=== PATIENT | male | born 2000 | race Hispanic/Latino ===

== ENCOUNTER 2021-05-04 17:35 | Inpatient (IN) | payer OTHER ==
[~2021-05-04] VITALS: Ht 177.8 cm; Wt 91.4 kg
[2021-05-04] MEDS ORDERED: FLUO10CA16 PO (17:57)
[2021-05-04 18:54] LABS: HEMOGLOBIN 15.4 g/dl (13.5-17.5); MEAN CORPUSCULAR HEMOGLOBIN 29.3 pg (27.0-33.0); MEAN CORPUSCULAR HGB CONC 34.2 g/dl (32.0-36.5); MEAN CORPUSCULAR VOLUME 85.6 fl (80.0-96.0); PLATELET COUNT, AUTOMATED 279 10^3/uL (150-450); RED BLOOD COUNT 5.26 10^6/uL (4.30-6.10); WHITE BLOOD COUNT 9.5 10^3/uL (4.0-10.0)
[2021-05-04 19:28] LABS: AMPHETAMINES LEVEL URINE NEGATIVE (NEGATIVE); BARBITURATES URINE NEGATIVE (NEGATIVE); BENZODIAZEPINES URINE NEGATIVE (NEGATIVE); CANNABINOIDS URINE NEGATIVE (NEGATIVE); COCAINE METABOLITE URINE NEGATIVE (NEGATIVE); METHADONE URINE NEGATIVE (NEGATIVE); OPIATES URINE NEGATIVE (NEGATIVE); PHENCYCLIDINE URINE NEGATIVE (NEGATIVE)
[2021-05-04 19:32] LABS: ACETAMINOPHEN LEVEL < 2.0 UG/ML (10.0-30.0); ALBUMIN 4.6 GM/DL (3.2-5.2); ALT/SGPT 39 U/L (12-78); BILIRUBIN,DIRECT 0.1 MG/DL (0.0-0.2); BILIRUBIN,TOTAL 0.4 MG/DL (0.2-1.0); BLOOD UREA NITROGEN 9 MG/DL (7-18); CALCIUM LEVEL 9.9 MG/DL (8.5-10.1); CARBON DIOXIDE LEVEL 25 MEQ/L (21-32); CHLORIDE LEVEL 107 MEQ/L (98-107); CREATININE FOR GFR 0.84 MG/DL (0.70-1.30); ETHYL ALCOHOL (ETHANOL) < 0.003 % (0.000-0.010); GLUCOSE, FASTING 82 MG/DL (70-100); POTASSIUM SERUM 3.8 MEQ/L (3.5-5.1); SALICYLATE LEVEL < 1.7 MG/DL (5.0-30.0); SODIUM LEVEL 140 MEQ/L (136-145); TOTAL PROTEIN 8.4 GM/DL (6.4-8.2)
[2021-05-04] MEDS ORDERED: traZODone 50 MG TAB PO PRN (21:05)
[2021-05-04] MEDS ORDERED: MOM 30ML SUSPENSION UDC PO PRN (21:05)
[2021-05-04] MEDS ORDERED: ACETAMINOPHEN TAB 650MG DOSE (2X325MG) PO PRN (21:05)
[2021-05-04] MEDS ORDERED: MAALOX 30 ML SUSP *UDC PO PRN (21:05)
--- OUTSIDE RECORDS SUMMARY | 2021-05-04 21:08 | CCD ---
Author Author [facility] Organization [facility] Address Unknown Phone Unavailable Support Name Relationship Address Phone [facility] Next Of Kin [address] [place] [address] Unavailable FELICITAS BAKER Next Of Kin [id number] [place] [address] Re-disclosure Warning The records that you are about to access may contain information from federally-assisted alcohol or drug abuse programs. If such information is present, then the following federally mandated warning applies: This information has been disclosed to you from records protected by federal confidentiality rules (42 CFR part 2). The federal rules prohibit you from making any further disclosure of this information unless further disclosure is expressly permitted by the written consent of the person to whom it pertains or as otherwise permitted by 42 CFR part 2. A general authorization for the release of medical or other information is NOT sufficient for this purpose. The Federal rules restrict any use of the information to criminally investigate or prosecute any alcohol or drug abuse patient.The records that you are about to access may contain highly sensitive health information, the redisclosure of which is protected by Article 27-F of the [facility] Public Health law. If you continue you may have access to information: Regarding HIV / AIDS; Provided by facilities licensed or operated by the [facility] Office of Mental Health; or Provided by the [facility] Office for People With Developmental Disabilities. If such information is present, then the following [facility] mandated warning applies: This information has been disclosed to you from confidential records which are protected by state law. State law prohibits you from making any further disclosure of this information without the specific written consent of the person to whom it pertains, or as otherwise permitted by law. Any unauthorized further disclosure in violation of state law may result in a fine or [place] [facility] sentence or both. A general authorization for the release of medical or other information is NOT sufficient authorization for further disc losure. Medications No Information Insurance Providers Payer name Policy type / Coverage type Policy ID Covered republican ID Covered republican's relationship to nesbitt Policy Nesbitt Plan Information [facility] [employer] [id number] Problems, Conditions, and Diagnoses No Information Surgeries/Procedures No Information Results No Information Social History No Information
[2021-05-04 21:53] LABS: RSV AMPLIFICATION NEGATIVE (NEGATIVE)
[2021-05-04] MEDS ORDERED: HOME MED LIST COMPLETE! XX SCH (22:20)
[2021-05-05 00:16] VITALS: BP 158/98
[2021-05-05] MEDS ORDERED: ALPRAZolam 0.5 MG TAB PO PRN (00:50)
[2021-05-05] MEDS ORDERED: ALPRAZolam 0.5 MG TAB PO ONE (00:50)
[2021-05-05] MEDS ORDERED: SERTRALINE HCL 50 MG TAB PO SCH (09:00)
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
[2021-05-05] MEDS: DULoxetine 20 MG CAP (CYMBALTA) PO SCH ×2 (11:50→21:01)
--- NOTE | 2021-05-05 15:09 | HPEPDOC ---
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 He expressed to his that he is feeling depressed and having suicidal thoughts for several months to his . She brought him to the ER. He was admitted to the [facility]. Patient reports numerous stressors including too much work, poor sleep and appetite low energy and concentration. He lost his mother in the last year due to Covid. Patient denies chest pain pa lpitations shortness of breath nausea vomiting diarrhea subjective fevers and chills. Hospitalist service was consulted for medical intake. Patient is normotensive afebrile. He does not have any acute abnormalities on his CBC. ALP is mildly elevated at 128 with upper limit of normal at 117. He does not endorse any abdominal pain or jaundice. PAST MEDICAL HISTORY: Depression, nicotine dependence PAST SURGICAL HISTORY: Ports no prior surgical history SOCIAL HISTORY: Patient denies smoking, but there are reports of tobacco use Patient denies etoh use Patient denies illicit drug use ALLERGIES: Please see below. REVIEW OF SYSTEMS: 10 point ROS was conducted, relevant findings were noted in the HPI. HOME MEDICATIONS: Please see below. PHYSICAL EXAMINATION: VITAL SIGNS: please see below General: NAD, comfortable HEENT: PERRLA, EOMI, sclerae clear Neck: supple, normal ROM, no JVD Respiratory: lungs CTAB, no wheeze, no rales, no crackles CVS: RRR, normal S1, S2, no murmurs Abdo: soft, no masses, no hepatosplenomegaly, BS+, no rebound tenderness Extremities: no edema, pulses 2+ MSK: no joint deformities, normal ROM Neuro: no focal neuro deficits, moving all 4 extremities, CN2-12 intact. Strength 5/5 in all 4 extremities. No nystagmus. Psych: calm, cooperative, AAO x 3 LABORATORY DATA: See below. MICROBIOLOGY: Please see below. 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 He expressed to his that he is feeling depressed and having suicidal thoughts for several months. Hospital service was consulted for medical intake. PLAN: Suicidal ideation: Per psychiatry Elevated BMI 20.9: Lifestyle modification changes once mood stable. Thank you for involving me in the care of this patient. Please reconsult as necessary. Vital Signs Vital Signs Date Time Temp Pulse Resp B/P (MAP) Pulse Ox O2 Delivery O2 Flow Rate FiO2 05/05/21 06:45 Room Air 05/05/21 00:16 97.0 77 18 158/98 (118) 97 Laboratory Data Labs 24H Laboratory Tests 2 05/04/21 17:59: Nucleated Red Blood Cells % (auto) 0.0, Anion Gap 8, Calcium Level 9.9, Total Bilirubin 0.4, Direct Bilirubin 0.1, Aspartate Amino Transf (AST/SGOT) 23, Ala nine Aminotransferase (ALT/SGPT) 39, Alkaline Phosphatase 128H, Total Protein 8.4H, Albumin 4.6, Albumin/Globulin Ratio 1.2, Thyroid Stimulating Hormone (TSH) 2.150, Salicylates Level < 1.7L, Acetaminophen Level < 2.0L, Ethyl Alcohol Level < 0.003 05/04/21 18:09: Urine Opiates Screen NEGATIVE, Urine Methadone Screen NEGATIVE, Urine Barbiturates Screen NEGATIVE, Urine Phencyclidine Screen NEGATIVE, Urine Amphetamines Screen NEGATIVE, Urine Benzodiazepines Screen NEGATIVE, Urine Cocaine Metabolite Screen NEGATIVE, Urine Cannabinoids Screen NEGATIVE 05/04/21 20:54: Coronavirus (COVID-19)(PCR) NEGATIVE, Influenza Type A (RT-PCR) NEGATIVE, Influenza Type B (RT-PCR) NEGATIVE, Respiratory Syncytial Virus (PCR) NEGATIVE CBC/BMP Laboratory Tests 05/04/21 17:59 Home Medications No Active Prescriptions or Reported Meds Allergies Coded Allergies: No Known Allergies (Unverified , 05/04/21) A-FIB/CHADSVASC Age/Risk Factor Scoring CHADSVASC: CHADSVASC Response (Comments) Value Age Risk Factor Age < 65 years old 0 Gender Risk Factor Male 0 Hx of CHF No 0 Hx of HTN No 0 Hx of Stroke/TIA/or VTE No 0 Hx of Diabetes No 0 Hx of Vascular Disease No 0 Total RIC RUCKER MD May 05, 2021 15:09
[2021-05-05 16:26] VITALS: BP 118/56
[2021-05-06 06:57] VITALS: BP 118/58
[2021-05-06] MEDS: DULoxetine 20 MG CAP (CYMBALTA) PO SCH ×2 (09:24→20:07)
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
[2021-05-06 15:34] VITALS: BP 128/70
[2021-05-06] MEDS ORDERED: traZODone 50 MG TAB PO SCH (21:00)
[2021-05-07 06:39] VITALS: BP 119/57
[2021-05-07] MEDS ORDERED: TRAZ-252 PO (08:48)
[2021-05-07] MEDS ORDERED: CYMB1CAP4 PO (08:48)
[2021-05-07] MEDS: DULoxetine 20 MG CAP (CYMBALTA) PO SCH (09:02)
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
== END 2021-05-07 11:40 | disposition home or self-care (01) | DRG 885 ==
LOC: M ED 17:35 → M ED INP 21:02 → M PSY 05-05 00:10
PROVIDERS: ADMIT Psychiatry & Neurology Psychiatry; ATTEND Student in an Organized Health Care Education/Training Program
DX: F33.2 Major depressive disorder, recurrent severe without psychotic features (principal); R45.851 Suicidal ideations; Z63.4 Disappearance and death of family member; F41.1 Generalized anxiety disorder; F43.9 Reaction to severe stress, unspecified; F17.290 Nicotine dependence, other tobacco product, uncomplicated; Z56.6 Other physical and mental strain related to work; Z20.822 Contact with and (suspected) exposure to COVID-19